=== PATIENT | female | born 1985 | race Caucasian/White ===

== ENCOUNTER 2018-03-14 15:57 | Emergency (ER) | payer MEDICAID ==
[~2018-03-14] VITALS: Ht 154.9 cm; Wt 43.0 kg
[2018-03-14 17:27] LABS: CLARITY URINE CLEAR (CLEAR); COLOR URINE YELLOW (YELLOW); KETONES URINE NEGATIVE (NEGATIVE); LEUKOCYTE ESTERASE URINE NEGATIVE (NEGATIVE); NITRITE URINE NEGATIVE (NEGATIVE); OCCULT BLOOD URINE NEGATIVE (NEGATIVE); PROTEIN URINE NEGATIVE (NEGATIVE); SPECIFIC GRAVITY URINE 1.001 (1.005-1.030); UROBILINOGEN URINE 0.2 E.U./dL (0.2-1.0)
[2018-03-14] MEDS ORDERED: KETOROLAC 15MG/ML VIAL IM ONE (19:15)
[2018-03-14] MEDS ORDERED: CYCLOBENZAPRINE 10MG TABLET PO ONE (19:15)
[2018-03-14 19:18] VITALS: BP 126/82
== END 2018-03-14 19:50 | disposition home or self-care (01) ==
LOC: ER 15:57
DX: M54.6 Pain in thoracic spine (principal); M54.2 Cervicalgia; M54.30 Sciatica, unspecified side; I95.9 Hypotension, unspecified
CPT/HCPCS: 81003; 81025; 96372; 99283; J1885; Z7610